=== PATIENT | male | born 1985 | race Caucasian/White ===

== ENCOUNTER 2016-06-16 17:56 | Inpatient (IN) | payer SELFPAY ==
[~2016-06-16] VITALS: Ht 170.2 cm; Wt 77.0 kg
[~2016-06-16 17:56] MED LIST: Z.0.NO CURRENT MEDS
[2016-06-16 17:59] VITALS: BP 131/76; PULSE 130; RESP 16; TEMP 97.9; O2SAT 100
[2016-06-16] MEDS ORDERED: LORazepam 2 MG/ML VIAL IV ONE (18:30)
[2016-06-16] MEDS ORDERED: SODIUM CHLOR 0.9% 1000 ML INJ 1,000 ML IV ONE ×2 (18:30→20:15)
[2016-06-16 19:11] LABS: AUTOMATED NEUTROPHIL # 7.5 TH/MM3 (1.8-7.7); BASOPHIL % 0.2 % (0.0-2.0); EOSINOPHIL # 0.1 TH/MM3 (0-0.4); EOSINOPHIL % 1.4 % (0.0-4.0); HEMATOCRIT 49.2 % (39.0-51.0); HEMO FLAGS DIFF FINAL; LYMPH % 10.2 % (9.0-44.0); MEAN CELL VOLUME 93.2 FL (80.0-100.0); MEAN CORPUSCULAR HEMOGLOBIN 32.5 PG (27.0-34.0); MEAN CORPUSCULAR HGB CONC 34.9 % (32.0-36.0); NEUT % 77.2 % (16.0-70.0); PLATELET COUNT 231 TH/MM3 (150-450); RED BLOOD COUNT 5.28 MIL/MM3 (4.50-5.90); RED CELL DISTRIBUTION WIDTH 13.6 % (11.6-17.2); WHITE BLOOD COUNT 9.7 TH/MM3 (4.0-11.0)
--- NOTE | 2016-06-16 19:24 | PD ---
HPI Chief Complaint: Psychiatric Symptoms Time Seen by Provider: 18:11 Travel History International Travel<30 days: No Contact w/Intl Traveler<30days: No Traveled to known affect area: No History of Present Illness HPI Patient is a 30 year old male who comes in because he says he wants to kill himself. He has history of alcohol and drug abuse, and says he was trying to get detox, but was denied. He says he then decided that he wanted to take his life. He says he has history of depression. He has never attempted suicide before. He has no plan at this time. He says usually drinks about 18 drinks per day, he has not had a drink today. He says he feels tremulous and has body aches from opiate withdrawal. [facility] Past Medical History Asthma: Yes Respiratory: Yes (ASTHMA) Past Surgical History Surgical History: No Previous Surgery Social History Alcohol Use: Yes (18 PACK A DAY) Tobacco Use: Yes (1PPD) Substance Use: Yes (COCAINE, OPIATES, BENZOS LAST USED LAST NIGHT) Allergies-Medications (Allergen,Severity, Reaction): Coded Allergies: No Known Allergies (Verified Allergy, Mild, 05/20/06) Reported Meds & Prescriptions Reported Meds & Active Scripts Active No Active Prescriptions or Reported Medications Review of Systems Except as stated in HPI: all other systems reviewed are Neg General / Constitutional: No: Fever, Chills HENT: No: Headaches, Lightheadedness Cardiovascular: No: Chest Pain or Discomfort Respiratory: No: Shortness of Breath Gastrointestinal: Positive: Nausea, No: Vomiting, Abdominal Pain Musculoskeletal: Positive: Myalgias Skin: No Rash, No Change in Pigmentation Neurologic: No: Weakness, Dizziness Physical Exam Narrative GENERAL: Awake and alert, in no acute distress. SKIN: Warm and dry. HEAD: Atraumatic. Normocephalic. EYES: Pupils equal and round. No scleral icterus. ENT: Mucous membranes pink and moist. Tongue fasciculations. NECK: Trachea midline. No JVD. CARDIOVASCULAR: Tachycardia. No murmur appreciated. RESPIRATORY: No accessory muscle use. Clear to auscultation. Breath sounds equal bilaterally. GASTROINTESTINAL: Abdomen soft, non-tender, nondistended. MUSCULOSKELETAL: No obvious deformities. No clubbing. No cyanosis. No edema. Hand tremors noted. NEUROLOGICAL: Awake and alert. No obvious cranial nerve deficits. Motor grossly within normal limits. Normal speech. PSYCHIATRIC: Appropriate mood and affect; insight and judgment normal. Data Data Last Documented VS Vital Signs Date Time Temp Pulse Resp B/P Pulse Ox O2 Delivery O2 Flow Rate FiO2 06/16/16 18:11 18 06/16/16 17:59 97.9 130 131/76 100 Room Air Orders Complete Blood Count With Diff (06/16/16 18:16) Comprehensive Metabolic Panel (06/16/16 18:16) Urinalysis - C+S If Indicated (06/16/16 18:16) Electrocardiogram (06/16/16 18:16) Psych Screen (06/16/16 18:16) Lorazepam Inj (Ativan Inj) (06/16/16 18:30) Drug Screen, Random Urine (06/16/16 18:16) Alcohol (Ethanol) (06/16/16 18:16) Salicylates (Aspirin) (06/16/16 18:16) Tylenol (Acetaminophen) (06/16/16 18:16) Sodium Chlor 0.9% 1000 Ml Inj (Ns 1000 M (06/16/16 18:30) Labs Laboratory Tests Test 06/16/16 18:37 White Blood Count 9.7 TH/MM3 Red Blood Count 5.28 MIL/MM3 Hemoglobin 17.2 GM/DL Hematocrit 49.2 % Mean Corpuscular Volume 93.2 FL Mean Corpuscular Hemoglobin 32.5 PG Mean Corpuscular Hemoglobin 34.9 % Concent Red Cell Distribution Width 13.6 % Platelet Count 231 TH/MM3 Mean Platelet Volume 7.5 FL Neutrophils (%) (Auto) 77.2 % Lymphocytes (%) (Auto) 10.2 % Monocytes (%) (Auto) 11.0 % Eosinophils (%) (Auto) 1.4 % Basophils (%) (Auto) 0.2 % Neutrophils # (Auto) 7.5 TH/MM3 Lymphocytes # (Auto) 1.0 TH/MM3 Monocytes # (Auto) 1.1 TH/MM3 Eosinophils # (Auto) 0.1 TH/MM3 Basophils # (Auto) 0.0 TH/MM3 CBC Comment DIFF FINAL Differential Comment MDM Medical Decision Making Medical Screen Exam Complete: Yes Emergency Medical Condition: Yes Differential Diagnosis Alcohol withdrawal versus suicidal ideation versus dehydration versus electrolyte abnormality Narrative Course Patient is a 30-year-old male who comes in because he says he wants to commit suicide. He has signs of withdrawal including tongue fasciculations, tachycardia and hand tremors. IV established, labs sent. Patient given IV fluids as well as Ativan. Patient signed out to Dr. Topete to follow-up labs and disposition appropriately. Scripts No Active Prescriptions or Reported Meds Condition: Tracy Dupont MD Jun 16, 2016 19:23
[2016-06-16] MEDS ORDERED: LORazepam 2 MG TAB PO PRN (19:30)
[2016-06-16] MEDS ORDERED: FLUMAZENIL 0.5 MG/5 ML VIAL IV PUSH PRN (19:30)
[2016-06-16] MEDS ORDERED: ONDANSETRON HCL 4 MG/2 ML VIAL IV PUSH ONE (19:30)
[2016-06-16] MEDS ORDERED: LORazepam 2 MG/ML VIAL IV PUSH PRN ×3 (19:30)
[2016-06-16 19:32] LABS: ACETAMINOPHEN LESS THAN 2.0 MCG/ML (10.0-30.0); ALKALINE PHOSPHATASE 67 U/L (45-117); ALT (GPT) 327 U/L (12-78); ANION GAP 13 MEQ/L (5-15); AST (GOT) 135 U/L (15-37); BICARBONATE 24.8 MEQ/L (21.0-32.0); BLOOD UREA NITROGEN 6 MG/DL (7-18); CHLORIDE 106 MEQ/L (98-107); GLOMERULAR FILTRATION RATE 104 ML/MIN (>89); POTASSIUM 4.1 MEQ/L (3.5-5.1); SODIUM (NA) 144 MEQ/L (136-145); TOTAL BILIRUBIN ADULT 0.7 MG/DL (0.2-1.0)
--- NOTE | 2016-06-16 19:46 | PD ---
Physical Exam Narrative General: The patient is a well-developed well-nourished male in no acute distress. Head and Neck exam: Head is normocephalic atraumatic. Eyes: Pupils are equal round and reactive to light. The patient's pupils on examination are 6 mm bilaterally. Nose: Midline septum with pink mucous membranes Mouth: Dentition unremarkable. Moist mucus membranes. Posterior oropharynx is not erythematous. No tonsillar hypertrophy. Uvula midline. Airway patent. Neck: No palpable lymphadenopathy. No nuchal rigidity. No thyromegaly. Cardiovascular: Sinus tachycardia in the low 100 without murmurs, gallops, or rubs. Lungs: Clear to auscultation bilaterally. No wheezes, rhonchi, or rales. Abdomen: Soft, without tenderness to palpation in all 4 quadrants of the abdomen. No guarding, rebound, or rigidity. Normal bowel sounds are audible. Extremities: No clubbing, cyanosis, or edema. 2+ pulses in all 4 extremities. Back: No spinous process tenderness to palpation. No costovertebral angle tenderness to palpation. Neurologic Exam: Grossly nonfocal. Skin Exam: No rash noted. Intact skin that is warm and dry. Data Data Last Documented VS Vital Signs Date Time Temp Pulse Resp B/P Pulse Ox O2 Delivery O2 Flow Rate FiO2 06/16/16 20:00 98.9 120 22 108/58 98 06/16/16 17:59 Room Air Orders Complete Blood Count With Diff (06/16/16 18:16) Comprehensive Metabolic Panel (06/16/16 18:16) Urinalysis - C+S If Indicated (06/16/16 18:16) Electrocardiogram (06/16/16 18:16) Psych Screen (06/16/16 18:16) Lorazepam Inj (Ativan Inj) (06/16/16 18:30) Drug Screen, Random Urine (06/16/16 18:16) Alcohol (Ethanol) (06/16/16 18:16) Salicylates (Aspirin) (06/16/16 18:16) Tylenol (Acetaminophen) (06/16/16 18:16) Sodium Chlor 0.9% 1000 Ml Inj (Ns 1000 M (06/16/16 18:30) Alcohol Withdrawal Asmt-Ciwa ONCE (06/16/16 19:23) Flumazenil Inj (Romazicon Inj) (06/16/16 19:30) Lorazepam (Ativan) (06/16/16 19:30) Lorazepam Inj (Ativan Inj) (06/16/16 19:30) Lorazepam (Ativan) (06/16/16 19:30) Lorazepam Inj (Ativan Inj) (06/16/16 19:30) Lorazepam Inj (Ativan Inj) (06/16/16 19:30) Lorazepam Inj (Ativan Inj) (06/16/16 19:30) Ondansetron Inj (Zofran Inj) (06/16/16 19:30) Sodium Chlor 0.9% 1000 Ml Inj (Ns 1000 M (06/16/16 20:15) Admit Order (Ed Use Only) (06/16/16 20:22) Bedside Glucose SURY.AC&HS (06/16/16 20:22) Intake + Output SURY.QSHIFT (06/16/16 20:22) Alcohol Withdrawal Asmt-Ciwa Q4HX18 (06/16/16 20:22) ^ Seizure Precautions (06/16/16 20:22) Multivitamin Inj (Mvi-12 Inj)... (06/16/16 20:30) Thiamine Inj (Thiamine Inj) (06/16/16 20:30) Consult Cm-Etoh Abuse Dc Plan (06/16/16 ) Consult Psychiatry (06/16/16 ) Admit To Inpatient (06/16/16 ) Vital Signs (Adult) Q4H (06/16/16 20:22) Activity Oob Ad Stephie (06/16/16 20:22) Boomboat Operator / Telemetry .CONTINUOUS (06/16/16 20:22) Diet Regular Basic (06/17/16 Breakfast) Sodium Chloride 0.9% Flush (Ns Flush) (06/16/16 20:30) Sodium Chloride 0.9% Flush (Ns Flush) (06/16/16 21:00) Ondansetron Inj (Zofran Inj) (06/16/16 20:30) Bisacodyl Supp (Dulcolax Supp) (06/16/16 20:30) Comprehensive Metabolic Panel (06/17/16 06:00) Complete Blood Count With Diff (06/17/16 06:00) Scd Bilateral/Knee High SURY.BID (06/16/16 20:22) Stone Bilateral/Knee High SURY.QSHIFT (06/16/16 20:22) Acetaminophen (Tylenol) (06/16/16 20:30) Oxycodone (Roxicodone) (06/16/16 20:30) Oxycodone (Roxicodone) (06/16/16 20:30) Inpatient Certification (06/16/16 ) ^ Sitter (06/16/16 20:22) Labs Laboratory Tests Test 06/16/16 06/16/16 18:37 19:45 White Blood Count 9.7 TH/MM3 Red Blood Count 5.28 MIL/MM3 Hemoglobin 17.2 GM/DL Hematocrit 49.2 % Mean Corpuscular Volume 93.2 FL Mean Corpuscular Hemoglobin 32.5 PG Mean Corpuscular Hemoglobin 34.9 % Concent Red Cell Distribution Width 13.6 % Platelet Count 231 TH/MM3 Mean Platelet Volume 7.5 FL Neutrophils (%) (Auto) 77.2 % Lymphocytes (%) (Auto) 10.2 % Monocytes (%) (Auto) 11.0 % Eosinophils (%) (Auto) 1.4 % Basophils (%) (Auto) 0.2 % Neutrophils # (Auto) 7.5 TH/MM3 Lymphocytes # (Auto) 1.0 TH/MM3 Monocytes # (Auto) 1.1 TH/MM3 Eosinophils # (Auto) 0.1 TH/MM3 Basophils # (Auto) 0.0 TH/MM3 CBC Comment DIFF FINAL Differential Comment Sodium Level 144 MEQ/L Potassium Level 4.1 MEQ/L Chloride Level 106 MEQ/L Carbon Dioxide Level 24.8 MEQ/L Anion Gap 13 MEQ/L Blood Urea Nitrogen 6 MG/DL Creatinine 0.87 MG/DL Estimat Glomerular Filtration 104 ML/MIN Rate Random Glucose 81 MG/DL Calcium Level 9.1 MG/DL Total Bilirubin 0.7 MG/DL Aspartate Amino Transf 135 U/L (AST/SGOT) Alanine Aminotransferase 327 U/L (ALT/SGPT) Alkaline Phosphatase 67 U/L Total Protein 8.2 GM/DL Albumin 3.5 GM/DL Salicylates Level 3.0 MG/DL Acetaminophen Level LESS THAN 2.0 MCG/ML Ethyl Alcohol Level 8 MG/DL Urine Color YELLOW Urine Turbidity CLEAR Urine pH 7.0 Urine Specific [place] 1.011 Urine Protein NEG mg/dL Urine Glucose (UA) NEG mg/dL Urine Ketones 40 mg/dL Urine Occult Blood NEG Urine Nitrite NEG Urine Bilirubin NEG Urine Urobilinogen 4.0 MG/DL Urine Leukocyte Esterase NEG Urine RBC LESS THAN 1 /hpf Urine WBC LESS THAN 1 /hpf Microscopic Urinalysis Comment CULT NOT INDICATED Urine Opiates Screen NEG Urine Barbiturates Screen NEG Urine Amphetamines Screen NEG Urine Benzodiazepines Screen NEG Urine Cocaine Screen POS Urine Cannabinoids Screen NEG MDM Medical Record Reviewed: Yes Supervised Visit with MARIO: No Interpretation(s) Laboratory Tests Test 06/16/16 06/16/16 18:37 19:45 Hemoglobin 17.2 GM/DL (13.0-17.0) Neutrophils (%) (Auto) 77.2 % (16.0-70.0) Monocytes (%) (Auto) 11.0 % (0.0-8.0) Monocytes # (Auto) 1.1 TH/MM3 (0-0.9) Blood Urea Nitrogen 6 MG/DL (7-18) Aspartate Amino Transf 135 U/L (15-37) (AST/SGOT) Alanine Aminotransferase 327 U/L (12-78) (ALT/SGPT) Acetaminophen Level LESS THAN 2.0 MCG/ML (10.0-30.0) Ethyl Alcohol Level 8 MG/DL (0-5) Urine Ketones 40 mg/dL (NEG) Urine Urobilinogen 4.0 MG/DL (LESS THAN 2.0) Urine Cocaine Screen POS (NEG) Narrative Course During the course of the patients emergency department visit, the patients history, examination, and differential diagnosis were reviewed with the patient. The patient had IV access obtained and blood work sent for analysis. The patient was initially evaluated by Dr. Reyes who requested that I review the patient's laboratory studies and admit the patient. The patient came in with reports of possible harming himself. He denies ever attempting suicide previously. He denies having any known history of depression or anxiety, however he does have a long-standing history of polysubstance abuse. The patient reports that he does use IV drugs and has been doing this for the last 10 years. He reports that he also drinks an 18 pack of beer per day. He reports that he last had a beer early this morning. He last used drugs last night. He reports that he has a history of using benzodiazepines, opiates, and cocaine. The patient arrives with symptoms of alcohol withdrawal according to the initial physician that evaluated the patient. The patient is tachycardic. The patient was given Ativan 2 mg IV times one. On my arrival to the room the patient is resting comfortably although he is still slightly tachycardic. The patient is requesting food and drink. The patient had an EKG done that shows a sinus tachycardia rate of 107, no acute ST segment elevation is noted or depression. The patients laboratory studies were reviewed and remarkable for a CBC that shows a white count of 9.7, hemoglobin 17.2 suggestive of hemoconcentration, platelets 231, neutrophils 77.2, monocytes 11, CMP is remarkable for a BUN of 6 , AST 135, ALT 327 and a pattern suggestive of a viral hepatitis, urine drug screen is positive for cocaine, salicylate 3, acetaminophen less than 2, alcohol 8. Urine drug screen was positive for ketones of 40, urobilinogen 4 The patient will be admitted to the hospital for continued evaluation and treatment of polysubstance abuse with alcohol withdrawal syndrome and suicidal ideations. The patients results were discussed with the patient, including the plan of care. I explained that further testing and/ or monitoring is indicated based on the patients history, examination, and/ or laboratory findings. Therefore, I recommended admission for additional evaluation. The patient expressed understanding and was agreeable with this plan. The patient was admitted to the hospital in guarded condition and sent to a bed under the care of the [facility]. Physician Communication Physician Communication The patient's case was discussed with Dr. Bravo who did agree to admit the patient for further evaluation and treatment at this time Diagnosis Primary Impression: Alcohol withdrawal syndrome Qualified Code: F10.230 - Alcohol withdrawal syndrome, uncomplicated Additional Impressions: Polysubstance abuse Suicidal ideation Admitting Information Admitting Physician Requests: Admit Scripts No Active Prescriptions or Reported Meds Condition: Sherin Mims MD Jun 16, 2016 19:46
[2016-06-16 20:00] VITALS: BP 108/58; PULSE 120; RESP 22; TEMP 98.9; O2SAT 98
--- NOTE | 2016-06-16 20:25 | HHI.HP ---
[facility] No Primary Care Physician Admission Diagnosis ETOH withdrawal, Polysubstance abuse, Suicidal ideations Diagnoses: (1) Alcohol withdrawal Diagnosis: Principal (2) Polysubstance abuse Diagnosis: Principal (3) Suicidal ideation Diagnosis: Principal Travel History International Travel<30 Days: No Contact w/Intl Traveler <30 Da: No Traveled to Known Affected Are: No History of Present Illness This is a 30-year-old male with a PMH of Alcohol Abuse, Tobacco Abuse and Cocaine/Benzo/Opiate Abuse who presented to the ER for alcohol withdrawal and suicidal ideation. States he went to Detox yesterday, but was turned away as they had no beds. Normally drinks approx 18 beers/day, only had 1 beer today this morning. Reports tremors and agitation. As mentioned, also presents w/ suicidal ideation, not under [place] Act as pt currently Voluntary. On arrival, BP 131/76, HR 1:30, O2 sat hypersonic RA, Afebrile. CBC unremarkable except for hemoconcentration. CMP unremarkable except for elevated LFTs. UA negative. Urine Drug Screen positive for Cocaine. Alcohol 8. S/p IVF and IV Ativan in ER. Review of Systems Except as stated in HPI: all other systems reviewed are Neg ROS: 14 point review of systems otherwise negative. Past Family Social History Past Medical History PMH: Alcohol Abuse, Tobacco Abuse and Cocaine/Benzo/Opiate Abuse Past Surgical History PAST SURGICAL HISTORY: None Allergies: Coded Allergies: No Known Allergies (Verified , 05/20/06) Family History PAST FAMILY HISTORY: Reviewed. No h/o DM or CAD Social History PAST SOCIAL HISTORY: Drinks approx 18 beers/day. Smokes 1ppd. Positive for Cocaine/Opiates and Benzos Physical Exam Vital Signs Vital Signs Date Time Temp Pulse Resp B/P Pulse Ox O2 Delivery O2 Flow Rate FiO2 06/16/16 18:11 18 06/16/16 17:59 97.9 130 16 131/76 100 Room Air Physical Exam PE: GENERAL: Pleasant young white male in no acute distress, sitting up eating sandwich. Mildly tremulous. HEENT: PERRLA, EOMI. No scleral icterus or conjunctival pallor. No lid lag or facial droop. CARDIOVASCULAR: Regular rate and rhythm. No obvious murmurs to auscultation. No chest tenderness to palpation. RESPIRATORY: No obvious rhonchi or wheezing. Clear to auscultation. Breath sounds equal bilaterally. GASTROINTESTINAL: Abdomen soft, non-tender, nondistended. BS normal. MUSCULOSKELETAL: Extremities without clubbing, cyanosis, or edema. No obvious deformities. NEUROLOGICAL: Awake, alert and oriented x4. No focal neurologic deficits. Moving both upper and lower extremities spontaneously. Laboratory Laboratory Tests Test 06/16/16 18:37 White Blood Count 9.7 Red Blood Count 5.28 Hemoglobin 17.2 Hematocrit 49.2 Mean Corpuscular Volume 93.2 Mean Corpuscular Hemoglobin 32.5 Mean Corpuscular Hemoglobin 34.9 Concent Red Cell Distribution Width 13.6 Platelet Count 231 Mean Platelet Volume 7.5 Neutrophils (%) (Auto) 77.2 Lymphocytes (%) (Auto) 10.2 Monocytes (%) (Auto) 11.0 Eosinophils (%) (Auto) 1.4 Basophils (%) (Auto) 0.2 Neutrophils # (Auto) 7.5 Lymphocytes # (Auto) 1.0 Monocytes # (Auto) 1.1 Eosinophils # (Auto) 0.1 Basophils # (Auto) 0.0 CBC Comment DIFF FINAL Differential Comment Sodium Level 144 Potassium Level 4.1 Chloride Level 106 Carbon Dioxide Level 24.8 Anion Gap 13 Blood Urea Nitrogen 6 Creatinine 0.87 Estimat Glomerular Filtration 104 Rate Random Glucose 81 Calcium Level 9.1 Total Bilirubin 0.7 Aspartate Amino Transf 135 (AST/SGOT) Alanine Aminotransferase 327 (ALT/SGPT) Alkaline Phosphatase 67 Total Protein 8.2 Albumin 3.5 Salicylates Level 3.0 Acetaminophen Level LESS THAN 2.0 Ethyl Alcohol Level 8 Result Diagram: 06/16/16183606/16/161836 Assessment and Plan Problem List: (1) Alcohol withdrawal ICD Code: F10.239 Status: Acute (2) Polysubstance abuse ICD Code: F19.10 Status: Acute (3) Suicidal ideation ICD Code: R45.851 Status: Acute Assessment and Plan A/P: 1. Alcohol Withdrawal: h/o Alcohol Abuse, drinks approx 18 beers/day, intention to quit, last drink 1 beer this morning. Alcohol level 8. +tremulous on exam, tachycardic. S/p IVF and IV Ativan in ER. Seizure Precautions, CIWA, MVT/Thiamine/Folate replacement. Consult for Alcohol Abuse, pt interested in Detox. 2. Polysubstance Abuse: Tobacco Abuse, Cocaine Abuse, Benzo/Opiate Abuse. Urine Drug Screen positive for Cocaine. Ativan prn for withdrawal. 3. Suicidal Ideation: Voluntary, not under [place] Act at this time. Sitter. Consult Psych for further eval. 4. DVT Prophylaxis: SCD/Teds. 5. Social work for d/c planning as needed. 6. Case discussed w/ ER physician at length. Physician Certification 2 Midnight Certification Type: Admission for Inpatient Services Order for Inpatient Services The services are ordered in accordance with Medicare regulations or non- Medicare payer requirements, as applicable. In the case of services not specified as inpatient-only, they are appropriately provided as inpatient services in accordance with the 2-midnight benchmark. Estimated LOS (days): 2 days is the estimated time the patient will need to remain in the hospital, assuming treatment plan goals are met and no additional complications. Post-Hospital Plan: Not yet determined Kandy Bravo MD Jun 16, 2016 20:25
[2016-06-16] MEDS ORDERED: BISACODYL 10 MG SUPP PR PRN (20:30)
[2016-06-16] MEDS ORDERED: SODIUM CHLORIDE 0.9% FLUSH 5 ML FLUSH FLUSH PRN (20:30)
[2016-06-16] MEDS ORDERED: ONDANSETRON HCL 4 MG/2 ML VIAL IVP PRN (20:30)
[2016-06-16] MEDS ORDERED: ACETAMINOPHEN 325 MG TAB PO PRN (20:30)
[2016-06-16 20:35] LABS: BLOOD, URINE NEG (NEG); COMMENT (UR) CULT NOT INDICATED; CULTURE IF INDICATED CULT NOT INDICATED; GLUCOSE,URINE NEG (NEG); KETONE, URINE 40 mg/dL (NEG); NITRITE,URINE NEG (NEG); URINE COLOR YELLOW (YELLW/STRAW)
[2016-06-16 20:38] LABS: AMPHETAMINE, URINE NEG (NEG); BARBITURATES, URINE NEG (NEG); COCAINE, URINE POS (NEG)
[2016-06-16] MEDS: LORazepam 1 MG TAB PO PRN (20:50)
[2016-06-16] MEDS: SODIUM CHLORIDE 0.9% FLUSH 5 ML FLUSH FLUSH SCH (21:00)
[2016-06-16] MEDS: MULTIVITAMIN INJ 10 ML, FOLIC ACID INJ 1 MG in SODIUM CHLORID 0.9% 500 ML INJ 500 ML IV SCH (21:49)
[2016-06-16] MEDS: THIAMINE INJ 100 MG in SODIUM CHLORIDE 0.9% INJ 100 ML IV SCH (21:49)
[2016-06-16 22:00] VITALS: BP 112/60; PULSE 116; RESP 16; O2SAT 98
[2016-06-16 23:00] VITALS: BP_SYST 102; BP_SYST 109; BP_DIAS 50; BP_DIAS 62; PULSE 102; PULSE 105; RESP 16; RESP 22; TEMP 97.5; O2SAT 100; O2SAT 98
[2016-06-17] VITALS (7 sets, daily range): BP systolic 104–124; BP diastolic 48–63; PULSE 81–103; RESP 16–20; TEMP 97.5–98.7; O2SAT 98–100
[2016-06-17 05:04] LABS: AUTOMATED NEUTROPHIL # 4.2 TH/MM3 (1.8-7.7); BASOPHIL % 0.3 % (0.0-2.0); EOSINOPHIL # 0.2 TH/MM3 (0-0.4); EOSINOPHIL % 3.5 % (0.0-4.0); HEMATOCRIT 42.1 % (39.0-51.0); LYMPH % 20.3 % (9.0-44.0); LYMPHOCYTE # 1.4 TH/MM3 (1.0-4.8); MEAN CELL VOLUME 95.4 FL (80.0-100.0); MEAN CORPUSCULAR HGB CONC 33.6 % (32.0-36.0); MONO % 14.9 % (0.0-8.0); PLATELET COUNT 205 TH/MM3 (150-450); RED BLOOD COUNT 4.41 MIL/MM3 (4.50-5.90); RED CELL DISTRIBUTION WIDTH 14.1 % (11.6-17.2); WHITE BLOOD COUNT 6.9 TH/MM3 (4.0-11.0)
[2016-06-17 05:05] LABS: HEMO FLAGS AUTO DIFF
[2016-06-17 05:28] LABS: ALKALINE PHOSPHATASE 52 U/L (45-117); ALT (GPT) 246 U/L (12-78); ANION GAP 6 MEQ/L (5-15); AST (GOT) 90 U/L (15-37); BICARBONATE 24.9 MEQ/L (21.0-32.0); BLOOD UREA NITROGEN 5 MG/DL (7-18); CHLORIDE 111 MEQ/L (98-107); GLOMERULAR FILTRATION RATE 118 ML/MIN (>89); POTASSIUM 4.1 MEQ/L (3.5-5.1); SODIUM (NA) 142 MEQ/L (136-145); TOTAL BILIRUBIN ADULT 0.4 MG/DL (0.2-1.0)
[2016-06-17 07:05] LABS: PLATELET ESTIMATE SMEAR NORMAL (NORMAL); PLATELET MORPHOLOGY ENLARGED (NORMAL)
[2016-06-17 07:06] LABS: SCAN/DIFF AUTO DIFF CONFIRMED
[2016-06-17] MEDS: chlordiazePOXIDE 25 MG CAP PO SCH ×3 (10:58→17:54)
[2016-06-17] MEDS: SODIUM CHLORIDE 0.9% FLUSH 5 ML FLUSH FLUSH SCH ×2 (10:59→20:32)
--- NOTE | 2016-06-17 12:15 | HHI.PR ---
Subjective Remarks Follow-up alcohol withdrawal/DTs 06/17/16-patient seen and examined, complaining of tremors bilateral upper extremities however oriented and alert 3. Objective Vitals Vital Signs Date Time Temp Pulse Resp B/P Pulse Ox O2 Delivery O2 Flow Rate FiO2 06/17/16 08:00 98.1 87 19 118/55 98 06/17/16 04:00 97.6 81 20 104/55 100 06/16/16 23:00 97.5 105 22 102/50 100 06/16/16 23:00 102 16 109/62 98 06/16/16 22:00 116 16 112/60 98 06/16/16 20:00 98.9 120 22 108/58 98 06/16/16 18:11 18 06/16/16 17:59 97.9 130 16 131/76 100 Room Air I/O 06/16/16 06/16/16 06/16/16 06/17/16 06/17/16 06/17/16 07:00 15:00 23:00 07:00 15:00 23:00 Intake Total 360 ml 940 ml Balance 360 ml 940 ml Intake Oral 360 ml 340 ml IV Total 600 ml # Voids 2 # Bowel Movements 0 Result Diagram: 06/17/1644106/[id number] Objective Remarks GENERAL: NAD with tremors in upper extremities SKIN: Warm and dry. HEAD: Normocephalic. EYES: No scleral icterus. No injection or drainage. NECK: Supple, trachea midline. No JVD or lymphadenopathy. CARDIOVASCULAR: Regular rate and rhythm without murmurs, gallops, or rubs. RESPIRATORY: Breath sounds equal bilaterally. No accessory muscle use. GASTROINTESTINAL: Abdomen soft, non-tender, nondistended. MUSCULOSKELETAL: No cyanosis, or edema. BACK: Nontender without obvious deformity. No CVA tenderness. A/P Problem List: (1) Alcohol withdrawal ICD Code: F10.239 Status: Acute (2) Polysubstance abuse ICD Code: F19.10 Status: Acute (3) Suicidal ideation ICD Code: R45.851 Status: Acute Assessment and Plan 30-year-old male with 1. Alcohol Withdrawal: h/o Alcohol Abuse, drinks approx 18 beers/day. Alcohol level 8. +tremulous on exam, tachycardic. Continue with Seizure Precautions, CIWA, MVT/Thiamine/Folate replacement and add Librium 25 mg by mouth 3 times a day. Consult for Alcohol Abuse, pt interested in Detox. 2. Polysubstance Abuse: Tobacco Abuse, Cocaine Abuse, Benzo/Opiate Abuse. Urine Drug Screen positive for Cocaine. Ativan prn for withdrawal. 3. Suicidal Ideation: Voluntary, not under [place] Act at this time. Sitter. Appreciate input from Psych 4. DVT Prophylaxis: SCD/Teds. Discharge Planning Likely discharge tomorrow 06/18/16 Evens Chaves MD Jun 17, 2016 12:15
--- NOTE | 2016-06-17 12:37 | EKG ---
Date Performed: 06/16/2016 Time Performed: 20:18:09 PTAGE: 30 years EKG: SINUS TACHYCARDIA ABNORMAL RHYTHM ECG NO PREVIOUS TRACING DOCTOR: Tripp Hoang Interpretating Date/Time 06/17/2016 12:31:28
--- NOTE | 2016-06-17 13:39 | PD.CONS ---
Provisional Diagnosis Admission Date Jun 16, 2016 at 20:24 Zalma I. Polysubstance dependence, including alcohol, cocaine, opiates, benzodiazepines, substance induced mood disorder Zalma II. Deferred Zalma III. Asthma, alcohol withdrawal Zalma IV. Lack of family and social support Zalma V. 56 History of Present Illness Service Psychiatry Consult Requested By Primary Care Physician No Primary Care Physician HPI The patient is a 30-year-old man, domiciled in a sober house, single, employed, without any previous psychiatric history other than polysubstance dependence including alcohol, heroine, cocaine and benzodiazepines, history of incarcerations due to substance related problems, medical history asthma, admitted in the medical floor due to alcohol withdrawal. Initially patient stated he went to Detox yesterday, but was turned away as they had no beds. Normally drinks approx 18 beers/day, only had 1 beer today this morning. Reports tremors and agitation. As mentioned, also presents w/ suicidal ideation , not under Mcgraw Act as pt currently Voluntary. On arrival, BP 131/76, HR 1:30 , O2 sat hypersonic RA, Afebrile. CBC unremarkable except for hemoconcentration. CMP unremarkable except for elevated LFTs. UA negative. Urine Drug Screen positive for Cocaine. Alcohol 8. S/p IVF and IV Ativan in ER. On psychiatric evaluation patient was calm and cooperative, a little distant and detached, he explains that he came to the hospital looking for help "because I want to be detox of my drugs". Patient states that he has been spending about $200 daily in multiple drugs. He uses alcohol, benzodiazepines, crack and heroin everyday. He has been living in a sober house, where he is no going to be able to return due to failure to keep sobriety. For this reason patient has been "feeling down, sad and depressed", but motivated to engage in a detox program. At this moment the patient denies suicidal or homicidal ideation, he denies visual and auditory hallucinations. Patient is oriented 3 , no withdrawal observed, however patient reports body pain, sweating, nausea. Review of Systems Constitutional: COMPLAINS OF: Change in appetite, DENIES: Diaphoretic episodes , Fatigue, Fever, Weight gain, Weight loss, Chills, Dizziness, Night Sweats Endocrine: DENIES: Heat/cold intolerance, Polydipsia, Polyuria, Polyphagia Eyes: DENIES: Blurred vision, Diplopia, Eye inflammation, Eye pain, Vision loss , Photosensitivity, Double Vision Respiratory: DENIES: Apneas, Cough, Snoring, Wheezing, Hemoptysis, Sputum production, Shortness of breath Cardiovascular: DENIES: Chest pain, Palpitations, Syncope, Dyspnea on Exertion , PND, Lower Extremity Edema, Orthopnea, Claudication Gastrointestinal: DENIES: Abdominal pain, Black stools, Bloody stools, Constipation, Diarrhea, Nausea, Vomiting, Difficulty Swallowing, Anorexia Musculoskeletal: COMPLAINS OF: Muscle aches, DENIES: Joint pain, Stiffness, Joint Swelling, Back pain, Neck pain Integumentary: DENIES: Abnormal pigmentation, Nail changes, Pruritus, Rash Hematologic/lymphatic: DENIES: Bruising, Lymphadenopathy Immunologic/allergic: DENIES: Eczema, Urticaria Neurologic: DENIES: Abnormal gait, Headache, Localized weakness, Paresthesias, Seizures, Speech Problems, Tremor, Poor Balance Psychiatric: COMPLAINS OF: Mood changes, Depression, DENIES: Anxiety, Confusion, Hallucinations, Agitation, Suicidal Ideation, Homicidal Ideation, Delusions Past Family Social History Coded Allergies: No Known Allergies (Verified , 05/20/06) No Active Prescriptions or Reported Meds Current Medications Medications (Trade) Dose Ordered Sig/Grover Route Start Time Stop Time Status Last Admin (Romazicon Inj) 0.2 mg Q1M PRN IV PUSH 06/16/16 19:30 (Ativan) 1 mg Q4H PRN PO 06/16/16 19:30 06/16/16 20:50 (Ativan Inj) 1 mg Q4H PRN IV PUSH 06/16/16 19:30 (Ativan) 2 mg Q2H PRN PO 06/16/16 19:30 (Ativan Inj) 2 mg Q2H PRN IV PUSH 06/16/16 19:30 (Ativan Inj) 2 mg Q1H PRN IV PUSH 06/16/16 19:30 Lorazepam 2 mg 2 mg Q15M PRN IV PUSH 06/16/16 19:30 Multivitamins 10 ml/Folic Acid 1 mg/Sodium Chloride 510.2 ml @ 125 mls/hr Q24H IV 06/16/16 20:30 06/21/16 20:29 06/16/16 21:49 (Thiamine Inj/NS Inj) 101 ml @ 100 mls/hr Q24H IV 06/16/16 20:30 06/19/16 20:29 06/16/16 21:49 (Vitamin B1) 100 mg DAILY PO 06/19/16 09:00 (NS Flush) 2 ml UNSCH PRN FLUSH 06/16/16 20:30 (NS Flush) 2 ml BID FLUSH 06/16/16 21:00 06/17/16 10:59 (Zofran Inj) 4 mg Q6H PRN IVP 06/16/16 20:30 (Dulcolax Supp) 10 mg DAILY PRN CA 06/16/16 20:30 (Tylenol) 650 mg Q6H PRN PO 06/16/16 20:30 (Librium) 25 mg TID PO 06/17/16 09:00 06/17/16 10:58 Social History Patient was born and raised in [place], he lives in [place] in a sober house, he is single, he works in gardening, he has one year of college. Physical Exam Vital Signs Vital Signs Date Time Temp Pulse Resp B/P Pulse Ox O2 Delivery O2 Flow Rate FiO2 06/17/16 08:00 98.1 87 19 118/55 98 06/16/16 17:59 Room Air I/O 06/16/16 06/16/16 06/17/16 08:00 16:00 00:00 Intake Total 360 ml Balance 360 ml Mental Status Examination Appearance young man, age appearing, fair hygiene, [facility], he is calm, but superficially cooperative, irritable Speech: Unremarkable Orientation: x3 Memory: Unremarkable Thought Process: Logical Thought Content: Unremarkable Hallucination Type: None Suicidal Ideation: No Previous Suicide Attempts: No Homicidal Ideation: No Previous Homicide Attempts: No Judgement: WNL Affect: Irritable Mood: Irritable Motor Activity: Normal gait Assessment & Plan Problem List: (1) Polysubstance abuse Assessment & Plan: The patient is a 30-year-old man, domiciled in a sober house, single, employed, without any previous psychiatric history other than polysubstance dependence including alcohol, heroine, cocaine and benzodiazepines, medical history asthma, admitted in the medical floor due to alcohol withdrawal. Patient reports sadness, depression in the context of sustained polysubstance dependence, he recently lost his bed in a sober house, and he has been uses about $200 per day in drugs. At this moment he denies suicidal or homicidal ideation, he denies visual and auditory hallucinations. Patient reports motivation to be discharged to a detox/rehabilitation program. He does not meet criteria for psychiatric admission at this moment. His previously described ambivalence suicidality is part of his polysubstance problem and most probably also is related to character/temperament structure and no to primary psychiatric condition, and most probably is a chronic suicidality, rather than acute new onset. Extensive support, motivation psycho education provided. Agree with Ciwa protocol, agree with with scale of Librium. Would treat opiates withdrawal with symptomatic treatment: PRN Clonidine 0.5 po q/8 when necessary anxiety/restlessness/tremor, ibuprofen 800 mg every 8 hours when necessary pain, Benadryl 50 mg every 8 hours when necessary lacrimation or itching, Zofram for nausea and vomit, loperamide for diarrhea. SW intervention to refer patient to detox in [facility]. Consult appreciated. ICD Code: F19.10 Assessment & Plan Estimated LOS: Mert Chávez MD Jun 17, 2016 13:39
[2016-06-17] MEDS: LORazepam 2 MG/ML VIAL IV PUSH PRN ×4 (20:32→23:39)
[2016-06-17] MEDS: THIAMINE INJ 100 MG in SODIUM CHLORIDE 0.9% INJ 100 ML IV SCH (20:39)
[2016-06-17] MEDS: MULTIVITAMIN INJ 10 ML, FOLIC ACID INJ 1 MG in SODIUM CHLORID 0.9% 500 ML INJ 500 ML IV SCH (20:39)
[2016-06-18] MEDS ORDERED: ACETAMINOPHEN 325 MG TAB PO PRN (00:15)
[2016-06-18 00:31] VITALS: BP 99/60; PULSE 92; RESP 20; TEMP 98.3; O2SAT 98
[2016-06-18] MEDS: LORazepam 2 MG/ML VIAL IV PUSH PRN (01:46)
[2016-06-18 04:00] VITALS: BP 109/57; PULSE 85; RESP 18; TEMP 96.5; O2SAT 100
[2016-06-18 08:30] VITALS: BP 93/54; PULSE 84; RESP 20; TEMP 97.2; O2SAT 97
[2016-06-18] MEDS: SODIUM CHLORIDE 0.9% FLUSH 5 ML FLUSH FLUSH SCH (09:06)
[2016-06-18] MEDS: chlordiazePOXIDE 25 MG CAP PO SCH ×2 (09:06→13:42)
[2016-06-18] MEDS ORDERED: CHLO25CA2 PO (09:24)
[2016-06-18] MEDS ORDERED: VITA100T2 PO (09:24)
--- NOTE | 2016-06-18 09:25 | HHI.PR ---
Subjective Remarks Follow-up alcohol withdrawal/DTs 06/17/16-patient seen and examined, complaining of tremors bilateral upper extremities however oriented and alert 3. 06/18/16-patient seen and examined, no acute event overnight, vitals stable and afebrile. Objective Vitals Vital Signs Date Time Temp Pulse Resp B/P Pulse Ox O2 Delivery O2 Flow Rate FiO2 06/18/16 08:30 97.2 84 20 93/54 97 06/18/16 04:00 96.5 85 18 109/57 100 06/18/16 00:31 98.3 92 20 99/60 98 06/17/16 20:39 103 06/17/16 20:00 98.7 98 16 124/63 98 06/17/16 16:00 98.1 95 18 118/56 100 06/17/16 12:00 97.5 96 17 104/48 100 I/O 06/17/16 06/17/16 06/17/16 06/18/16 06/18/16 06/18/16 07:00 15:00 23:00 07:00 15:00 23:00 Intake Total 940 ml 720 ml 0 ml 600 ml Output Total 800 ml Balance 940 ml 720 ml 0 ml -200 ml Intake Oral 340 ml 720 ml IV Total 600 ml 0 ml 600 ml Output Urine Total 800 ml # Voids 2 3 4 # Bowel Movements 0 0 0 Result Diagram: 06/17/1644106/17/16441 Objective Remarks GENERAL: NAD with tremors in upper extremities SKIN: Warm and dry. HEAD: Normocephalic. EYES: No scleral icterus. No injection or drainage. NECK: Supple, trachea midline. No JVD or lymphadenopathy. CARDIOVASCULAR: Regular rate and rhythm without murmurs, gallops, or rubs. RESPIRATORY: Breath sounds equal bilaterally. No accessory muscle use. GASTROINTESTINAL: Abdomen soft, non-tender, nondistended. MUSCULOSKELETAL: No cyanosis, or edema. BACK: Nontender without obvious deformity. No CVA tenderness. Procedures none A/P Problem List: (1) Alcohol withdrawal ICD Code: F10.239 Status: Acute (2) Polysubstance abuse ICD Code: F19.10 Status: Acute (3) Suicidal ideation ICD Code: R45.851 Status: Acute Assessment and Plan 30-year-old male with 1. Alcohol Withdrawal: h/o Alcohol Abuse, drinks approx 18 beers/day. Alcohol level 8. +tremulous on exam, tachycardic. Continue with Seizure Precautions, CIWA, MVT/Thiamine/Folate replacement and Librium 25 mg by mouth 3 times a day. Consult for Alcohol Abuse, pt interested in Detox. 2. Polysubstance Abuse: Tobacco Abuse, Cocaine Abuse, Benzo/Opiate Abuse. Urine Drug Screen positive for Cocaine. Ativan prn for withdrawal. 3. Suicidal Ideation: Voluntary, not under Mcgraw Act at this time. Appreciate input from Psych 4. DVT Prophylaxis: SCD/Teds. Discharge Planning discharge today 06/18/16 Evens Chaves MD Jun 18, 2016 09:25
--- NOTE | 2016-06-18 09:28 | HHI.DS ---
Discharge Summary Admission Date Jun 16, 2016 at 20:24 Discharge Date: Jun 18, 2016 Admitting Diagnosis ETOH withdrawal, Polysubstance abuse, Suicidal ideations (1) Alcohol withdrawal ICD Code: F10.239 (2) Polysubstance abuse ICD Code: F19.10 (3) Suicidal ideation ICD Code: R45.851 Procedures none Brief History - From Admission This is a 30-year-old male with a PMH of Alcohol Abuse, Tobacco Abuse and Cocaine/Benzo/Opiate Abuse who presented to the ER for alcohol withdrawal and suicidal ideation. States he went to Detox yesterday, but was turned away as they had no beds. Normally drinks approx 18 beers/day, only had 1 beer today this morning. Reports tremors and agitation. As mentioned, also presents w/ suicidal ideation, not under Mcgraw Act as pt currently Voluntary. On arrival, BP 131/76, HR 1:30, O2 sat hypersonic RA, Afebrile. CBC unremarkable except for hemoconcentration. CMP unremarkable except for elevated LFTs. UA negative. Urine Drug Screen positive for Cocaine. Alcohol 8. S/p IVF and IV Ativan in ER. CBC/BMP: 06/17/16 0442 06/17/16 0442 Significant Findings Laboratory Tests Test 06/16/16 06/16/16 06/17/16 18:37 19:45 04:42 Hemoglobin 17.2 GM/DL (13.0-17.0) Neutrophils (%) (Auto) 77.2 % (16.0-70.0) Monocytes (%) (Auto) 11.0 % 14.9 % (0.0-8.0) (0.0-8.0) Monocytes # (Auto) 1.1 TH/MM3 1.0 TH/MM3 (0-0.9) (0-0.9) Blood Urea Nitrogen 6 MG/DL (7-18) 5 MG/DL (7-18) Aspartate Amino Transf 135 U/L (15-37) 90 U/L (15-37) (AST/SGOT) Alanine Aminotransferase 327 U/L (12-78) 246 U/L (12-78) (ALT/SGPT) Acetaminophen Level LESS THAN 2.0 MCG/ML (10.0-30.0) Ethyl Alcohol Level 8 MG/DL (0-5) Urine Ketones 40 mg/dL (NEG) Urine Urobilinogen 4.0 MG/DL (LESS THAN 2.0) Urine Cocaine Screen POS (NEG) Red Blood Count 4.41 MIL/MM3 (4.50-5.90) Platelet Morphology Comment ENLARGED (NORMAL) Chloride Level 111 MEQ/L (98-107) Total Protein 6.3 GM/DL (6.4-8.2) Albumin 2.7 GM/DL (3.4-5.0) PE at Discharge GENERAL: NAD with tremors in upper extremities SKIN: Warm and dry. HEAD: Normocephalic. EYES: No scleral icterus. No injection or drainage. NECK: Supple, trachea midline. No JVD or lymphadenopathy. CARDIOVASCULAR: Regular rate and rhythm without murmurs, gallops, or rubs. RESPIRATORY: Breath sounds equal bilaterally. No accessory muscle use. GASTROINTESTINAL: Abdomen soft, non-tender, nondistended. MUSCULOSKELETAL: No cyanosis, or edema. BACK: Nontender without obvious deformity. No CVA tenderness. Hospital Course Patient was admitted secondary to alcohol withdrawal and was started on rally pack,CIWA protocol,Librium and Seizure Precautions with monitoring of vitals. Psychiatry was consulted secondary to suicidal ideation however patient was referred to [facility]. DVT and GI prophylaxis were provided. Prior to discharge, patient condition improved and remained stable. Pt Condition on Discharge: Stable Discharge Disposition: Discharge Home Discharge Time: <= 30 minutes Discharge Instructions DIET: Follow Instructions for: As Tolerated, No Restrictions Activities you can perform: Regular-No Restrictions Follow up Referrals: Behavioral Services PCP Follow-up - 1 Week New Medications: Chlordiazepoxide (Chlordiazepoxide) 25 Mg Cap 25 MG PO TID Alcohol Detox #6 CAP Thiamine (Vitamin B-1) 100 Mg Tab 100 MG PO DAILY Alcohol Detox #30 TAB Evens Chaves MD Jun 18, 2016 09:28
[2016-06-18] MEDS: LORazepam 1 MG TAB PO PRN (11:24)
[2016-06-18 12:30] VITALS: BP 104/52; PULSE 112; RESP 19; TEMP 97.7; O2SAT 98
[2016-06-19] MEDS ORDERED: THIAMINE HCL 100 MG TAB PO SCH (09:00)
== END 2016-06-18 16:33 | disposition home or self-care (01) | DRG 897 ==
LOC: NEPE 17:56 → NEDA 20:24 → N07A 23:47
PROVIDERS: ADMIT Hospitalist; ATTEND Hospitalist
DX: F10.231 Alcohol dependence with withdrawal delirium (principal); F11.10 Opioid abuse, uncomplicated; R45.851 Suicidal ideations; F14.10 Cocaine abuse, uncomplicated; F17.210 Nicotine dependence, cigarettes, uncomplicated; J45.909 Unspecified asthma, uncomplicated; F13.10 Sedative, hypnotic or anxiolytic abuse, uncomplicated; Y90.0 Blood alcohol level of less than 20 mg/100 ml
CPT/HCPCS: 80053; 80307; 80320; 80329; 81001; 82948; 85025; 93005; 96374; 96375; G0480; J2060; J2405; J3411; J7030; J7040

== ENCOUNTER 2016-06-29 03:19 | Emergency (ER) | payer SELFPAY ==
[~2016-06-29] VITALS: Ht 170.2 cm; Wt 72.0 kg
[~2016-06-29 03:19] MED LIST changes: +CHLO25CA2 PO; +VITA100T2 PO; -Z.0.NO CURRENT MEDS
[2016-06-29 03:21] VITALS: BP 118/58; PULSE 111; RESP 15; TEMP 98.2; O2SAT 99
[2016-06-29 03:59] LABS: MEAN CORPUSCULAR HGB CONC 36.1 % (32.0-36.0)
[2016-06-29 04:20] LABS: BASOPHIL % 0.2 % (0.0-2.0); EOSINOPHIL # 0.1 TH/MM3 (0-0.4); EOSINOPHIL % 0.8 % (0.0-4.0); HEMATOCRIT 44.9 % (39.0-51.0); LYMPH % 13.1 % (9.0-44.0); LYMPHOCYTE # 1.3 TH/MM3 (1.0-4.8); MEAN CELL VOLUME 92.4 FL (80.0-100.0); MEAN CORPUSCULAR HEMOGLOBIN 33.4 PG (27.0-34.0); MONO % 8.1 % (0.0-8.0); NEUT % 77.8 % (16.0-70.0); PLATELET COUNT 224 TH/MM3 (150-450); RED BLOOD COUNT 4.86 MIL/MM3 (4.50-5.90); WHITE BLOOD COUNT 10.3 TH/MM3 (4.0-11.0)
[2016-06-29 04:40] LABS: HEMO FLAGS AUTO DIFF
[2016-06-29 04:49] LABS: AMPHETAMINE, URINE NEG (NEG); BARBITURATES, URINE NEG (NEG); COCAINE, URINE POS (NEG)
[2016-06-29 04:56] LABS: ALT (GPT) 648 U/L (12-78); ANION GAP 9 MEQ/L (5-15); AST (GOT) 191 U/L (15-37); BICARBONATE 28.4 MEQ/L (21.0-32.0); BLOOD UREA NITROGEN 8 MG/DL (7-18); CHLORIDE 104 MEQ/L (98-107); GLOMERULAR FILTRATION RATE 74 ML/MIN (>89); POTASSIUM 4.1 MEQ/L (3.5-5.1); SODIUM (NA) 141 MEQ/L (136-145)
[2016-06-29 04:58] LABS: ALKALINE PHOSPHATASE 73 U/L (45-117); TOTAL BILIRUBIN ADULT 0.6 MG/DL (0.2-1.0)
[2016-06-29] MEDS ORDERED: LORazepam 2 MG/ML VIAL IM ONE (05:00)
--- NOTE | 2016-06-29 05:29 | PD ---
HPI Chief Complaint: Suicide Ideation/Attempt Time Seen by Provider: 04:45 Travel History International Travel<30 days: No Contact w/Intl Traveler<30days: No Traveled to known affect area: No History of Present Illness HPI This is a 30-year-old male who has a history of heavy alcohol use who presents to the emergency department reporting that he is thinking about hurting himself because he is so tired of using drugs and alcohol. He says he hasn't drank alcohol for 2 days yesterday morning. He says his friend found him with a gun next to his bed. He says he had the gun there because he wanted to kill himself. The patient also reports that he uses opiates and marijuana. He was recently hospitalized for alcohol withdrawal. He says he shortly after relapsed on alcohol. [facility] Past Medical History Asthma: Yes Respiratory: Yes (ASTHMA) Past Surgical History Surgical History: No Previous Surgery Social History Alcohol Use: Yes (18 PACK A DAY) Tobacco Use: Yes (1PPD) Substance Use: Yes (dilaudid, cocaine, marijuana) Allergies-Medications (Allergen,Severity, Reaction): Coded Allergies: No Known Allergies (Verified , 06/29/16) Reported Meds & Prescriptions Reported Meds & Active Scripts Active Chlordiazepoxide (Chlordiazepoxide HCl) 25 Mg Cap 25 Mg PO TID Vitamin B-1 (Thiamine HCl) 100 Mg Tab 100 Mg PO DAILY Review of Systems Except as stated in HPI: all other systems reviewed are Neg Physical Exam Narrative GENERAL: Uncomfortable appearing, somewhat shaky SKIN: Warm and dry. HEAD: Atraumatic. Normocephalic. EYES: Pupils equal and round. Bilateral conjunctival injection ENT: Moist mucous membranes NECK: Trachea midline. CARDIOVASCULAR: Regular rate and rhythm. No murmur appreciated. RESPIRATORY: Clear to auscultation. Breath sounds equal bilaterally. GASTROINTESTINAL: Abdomen soft, non-tender, nondistended. MUSCULOSKELETAL: No obvious deformities. NEUROLOGICAL: Awake and alert. No obvious cranial nerve deficits. Moving all extremities. PSYCHIATRIC: Depressed mood, poor eye contact Data Data Last Documented VS Vital Signs Date Time Temp Pulse Resp B/P Pulse Ox O2 Delivery O2 Flow Rate FiO2 06/29/16 06:44 100 14 120/55 98 Room Air 06/29/16 03:21 98.2 Orders Complete Blood Count With Diff (06/29/16 03:58) Comprehensive Metabolic Panel (06/29/16 03:58) Psych Screen (06/29/16 03:58) Drug Screen, Random Urine (06/29/16 03:58) Alcohol (Ethanol) (06/29/16 03:58) Lorazepam Inj (Ativan Inj) (06/29/16 05:00) Diet Regular Basic (06/29/16 Breakfast) Chlordiazepoxide (Librium) (06/29/16 07:00) Alcohol Withdrawal Asmt-Ciwa ONCE (06/29/16 06:51) Flumazenil Inj (Romazicon Inj) (06/29/16 07:00) Lorazepam (Ativan) (06/29/16 07:00) Lorazepam Inj (Ativan Inj) (06/29/16 07:00) Lorazepam (Ativan) (06/29/16 07:00) Lorazepam Inj (Ativan Inj) (06/29/16 07:00) Lorazepam Inj (Ativan Inj) (06/29/16 07:00) Lorazepam Inj (Ativan Inj) (06/29/16 07:00) Labs Laboratory Tests Test 06/29/16 06/29/16 04:05 04:15 White Blood Count 10.3 TH/MM3 Red Blood Count 4.86 MIL/MM3 Hemoglobin 16.2 GM/DL Hematocrit 44.9 % Mean Corpuscular Volume 92.4 FL Mean Corpuscular Hemoglobin 33.4 PG Mean Corpuscular Hemoglobin 36.1 % Concent Red Cell Distribution Width 13.0 % Platelet Count 224 TH/MM3 Mean Platelet Volume 6.8 FL Neutrophils (%) (Auto) 77.8 % Lymphocytes (%) (Auto) 13.1 % Monocytes (%) (Auto) 8.1 % Eosinophils (%) (Auto) 0.8 % Basophils (%) (Auto) 0.2 % Neutrophils # (Auto) 8.0 TH/MM3 Lymphocytes # (Auto) 1.3 TH/MM3 Monocytes # (Auto) 0.8 TH/MM3 Eosinophils # (Auto) 0.1 TH/MM3 Basophils # (Auto) 0.0 TH/MM3 CBC Comment AUTO DIFF Differential Comment AUTO DIFF CONFIRMED Platelet Estimate NORMAL Platelet Morphology Comment NORMAL Sodium Level 141 MEQ/L Potassium Level 4.1 MEQ/L Chloride Level 104 MEQ/L Carbon Dioxide Level 28.4 MEQ/L Anion Gap 9 MEQ/L Blood Urea Nitrogen 8 MG/DL Creatinine 1.17 MG/DL Estimat Glomerular Filtration 74 ML/MIN Rate Random Glucose 92 MG/DL Calcium Level 8.9 MG/DL Total Bilirubin 0.6 MG/DL Aspartate Amino Transf 191 U/L (AST/SGOT) Alanine Aminotransferase 648 U/L (ALT/SGPT) Alkaline Phosphatase 73 U/L Total Protein 7.8 GM/DL Albumin 3.9 GM/DL Ethyl Alcohol Level LESS THAN 3 MG/DL Urine Opiates Screen NEG Urine Barbiturates Screen NEG Urine Amphetamines Screen NEG Urine Benzodiazepines Screen POS Urine Cocaine Screen POS Urine Cannabinoids Screen POS MDM Medical Decision Making Medical Screen Exam Complete: Yes Emergency Medical Condition: Yes Interpretation(s) Afebrile, tachycardic, normotensive No leukocytosis Transaminitis Drug screen positive for benzodiazepines, cocaine and marijuana Differential Diagnosis Acute alcohol withdrawal, opiate withdrawal, depression Narrative Course This is a 30-year-old male who presents to the emergency department with depression and suicidal ideation in the setting of substance dependence. Labs were obtained which were reassuring. He was treated with IM Ativan and Librium and his heart rate improved. Patient voluntarily presents for psychiatric evaluation and he appears to have good insight and judgments I don't think a Mcgraw act is warranted at this time. Patient will be evaluated by psychiatry. Diagnosis Primary Impression: Alcohol withdrawal Qualified Code: F10.230 - Alcohol withdrawal, uncomplicated Violeta Elmore MD Jun 29, 2016 05:29
[2016-06-29 06:44] VITALS: BP 120/55; PULSE 100; RESP 14; O2SAT 98
[2016-06-29 06:45] LABS: PLATELET ESTIMATE SMEAR NORMAL (NORMAL); PLATELET MORPHOLOGY NORMAL (NORMAL); SCAN/DIFF AUTO DIFF CONFIRMED
[2016-06-29] MEDS ORDERED: FLUMAZENIL 0.5 MG/5 ML VIAL IV PUSH PRN (07:00)
[2016-06-29] MEDS ORDERED: LORazepam 1 MG TAB PO PRN (07:00)
[2016-06-29] MEDS ORDERED: LORazepam 2 MG TAB PO PRN (07:00)
[2016-06-29] MEDS ORDERED: chlordiazePOXIDE 25 MG CAP PO ONE (07:00)
[2016-06-29] MEDS ORDERED: LORazepam 2 MG/ML VIAL IV PUSH PRN ×4 (07:00)
[2016-06-29 12:15] VITALS: BP 93/54; PULSE 76; RESP 16; TEMP 98.1; O2SAT 96
[2016-06-29 15:17] VITALS: BP 94/56; PULSE 91; RESP 18; TEMP 98.5; O2SAT 99
[2016-06-29 18:00] VITALS: BP 107/53; PULSE 89; RESP 18; TEMP 98.9; O2SAT 98
== END 2016-06-29 20:26 | disposition home or self-care (01) ==
LOC: NEPC 03:19 → NEPJ 20:26
DX: F10.230 Alcohol dependence with withdrawal, uncomplicated (principal); J45.909 Unspecified asthma, uncomplicated; F17.210 Nicotine dependence, cigarettes, uncomplicated
CPT/HCPCS: 80053; 80307; 85025; 96372; 99285; J2060